=== PATIENT | male | born 2000 | race Caucasian/White ===

== ENCOUNTER 2021-03-11 20:01 | Emergency (ER) | payer BC ==
[~2021-03-11] VITALS: Ht 185.4 cm; Wt 83.9 kg
[2021-03-11 20:24] VITALS: BP 119/89
== END 2021-03-11 21:18 | disposition home or self-care (01) ==
LOC: M.ERS 20:01
DX: S01.112A Laceration without foreign body of left eyelid and periocular area, initial encounter (principal); W21.05XA Struck by basketball, initial encounter; Y93.89 Activity, other specified; Y92.89 Other specified places as the place of occurrence of the external cause; Y99.8 Other external cause status